=== PATIENT | male | born 1965 | race Caucasian/White ===

== ENCOUNTER 2019-07-10 14:15 | Inpatient (IN) | payer OTHER ==
[2019-07-10 17:55] VITALS: BMI 24.8
--- NOTE | 2019-07-10 19:15 | HP ---
"COWS - Scale Resting Pulse: 1= [place] 81-100 Sweatin=Flushed/Facial Moisture Restless Observation: 1= Difficult to Sit Still Pupil Size: 2= Moderately Dilated (Pupils = 3 mm) Bone or Joint Aches: 1= Mild Discomfort Runny Nose/ Eye Tearin= Nasal Congestion GI Upset > 30mins: 0= None Tremor Observation: 2= Slight Tremor Visible Yawning Observation: 0= None Anxiety or Irritability: 1=Feels Anxious/Irritable Goose Flesh Skin: 0=Smooth Skin COWS Score: 11 CIWA Score - Admission Criteria OAS Guidelines: Admission for Medically Managed Detox: Requires at least one of the followin. CIWA greater than 12 2. Seizures within the past 24 hours 3. Delirium tremens within the past 24 hours 4. Hallucinations within the past 24 hours 5. Acute intervention needed for co occurring medical disorder 6. Acute intervention needed for co occurring psychiatric disorder 7. Severe withdrawal that cannot be handled at a lower level of care (continued vomiting, continued diarrhea, abnormal vital signs) requiring intravenous medication and/or fluids 8. Admission ROS [facility] - [facility] Chief Complaint: Having withdrawal from heroin. Allergies/Adverse Reactions: Allergies Allergy/AdvReac Type Severity Reaction Status Date / Time No Known Allergies Allergy Verified 07/10/19 17:43 History of Present Illness: 53 yo presents w/ opioid withdrawal seeking detox. Heroin use began at age 39. Current use approx 5 bags/day x 3 years. Nasal. Last used about 8 am. Denies hx OD. Has a Narcan Kit at home. Methadone - denies methadone use. Denies oxycodone use. Marijuana use began at age 11. States smokes 1/2 joint/day. Alcohol use once/ month - approx 3-4 drinks. Denies a problem w/ alcohol. Denies nicotine use. Domiciled. Unemployed. Longest length of sobriety 6 months (3 1/2 yrs ago). Denies seizures, blackouts. PMHx: AFib (on Metoprolol and ASA 81); Acid Reflux (On omeprazole); Chronic LBP ; MHHx: Denies depression. Denies thoughts of harming self or others. Patient Name: Godwin Garza Date: 1965 Address: [address] [place] [address] Sex: Male Rx Written Rx Dispensed Drug Quantity Days Supply Prescriber Name 04/17/2019 04/17/2019 acetaminophen-cod #3 tablet 14 7 Vish Abbott DO Patient Name: Godwin Garza Date: 1965 Address: [address] [place] [address] Sex: Male Rx Written Rx Dispensed Drug Quantity Days Supply Prescriber Name 12/16/2018 12/16/2018 tramadol hcl 50 mg tablet 30 7 Mesh, Yamileth Search Terms: Godwin Garza, 1965 Search Date: 07/10/2019 07:14:31 PM States Searched: [place], [place], [place], [place], [place], [place] The Drug Utilization Report below displays the controlled substance prescriptions, if any, that were dispensed in the indicated state(s). The information displayed on this report is compiled from requests submitted to other states' PMPs, and accurately reflects the information as returned by them. Blank avila indicate data not provided by other state. This report was requested by: Carla Harper | Reference #: [id number] Exam Limitations: No Limitations - Ebola screening Have you traveled outside of the country in the last 21 days: No Have you had contact with anyone from an Ebola affected area: No Have you been sick,other than usual withdrawal symptoms: No (Denies recent exposure to measles) Do you have a fever: No - Review of Systems Constitutional: Diaphoresis, Changes in sleep (Difficulty falling asleep when not using - uses Trazodone) EENT: reports: Blurred Vision, Hearing Loss (Decreased hearing), Other (Hx tinitis) Respiratory: reports: No Symptoms reported Cardiac: reports: No Symptoms Reported GI: reports: Indigestion (Acid Reflux) : reports: No Symptoms Reported Musculoskeletal: reports: Back Pain (Chronic LBP. Pain is combination sharp and achy. No pain at this time.) Integumentary: reports: No Symptoms Reported Neuro: reports: Tremors Endocrine: reports: No Symptoms Reported Hematology: reports: No Symptoms Reported Psychiatric: reports: Judgement Intact, Orientated x3, Agitated, Anxious Patient History - PPD History Previous Implant?: Yes Documented Results: Negative w/proof Implanted On Prior [facility] Admission?: No PPD to be Administered?: No - Smoking Cessation Smoking history: Never smoked Have you smoked in the past 12 months: No Hx Chewing Tobacco Use: No Initiated information on smoking cessation: No - Substance & Tx. History Hx Alcohol Use: Yes Hx Substance Use: Yes Substance Use Type: Heroin, Marijuana Hx Substance Use Treatment: Yes (detox, rehab) - Substances abused Heroin Substance route: Inhalation Frequency: Daily Amount used: 5 bags Age of first use: 39 Date of last use: 07/10/19 Marijuana/Hashish Substance route: Smoking Frequency: Daily Amount used: half a joint at night Age of first use: 11 Date of last use: 07/09/19 Admission Physical Exam [facility] - Vital Signs Vital Signs: Vital Signs - 24 hr 07/10/19 17:42 Temperature 98.3 F Pulse Rate 77 Respiratory 16 Rate Blood Pressure 121/81 - Physical General Appearance: Yes: Nourished, Mild Distress, Tremorous, Sweating ( Increased facial moisture) HEENTM: Yes: EOMI (Jerking movement of eyes upon lateral gaze), Hearing grossly Normal, Normocephalic, Normal Voice, BENNY (Pupils = 3 mm), Pharynx Normal Respiratory: Yes: Lungs Clear, Normal Breath Sounds, No Respiratory Distress Neck: Yes: No masses,lesions,Nodules, Supple Breast: Yes: Breast Exam Deferred Cardiology: Yes: S1, S2, Irregular (Irregular rhythm and 86.) Abdominal: Yes: Non Tender, Flat, Soft, Increased Bowel Sounds Genitourinary: Yes: Within Normal Limits Back: Yes: Normal Inspection Musculoskeletal: Yes: full range of Motion, Gait Steady 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: 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 II-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 NML intact (Jerking movement of eyes upon lateral gaze), Fully Oriented, Alert, Motor Strength 5/5, Normal Mood/Affect Integumentary: Yes: Normal Color, Warm, Rash (reddish rash forehead/scalp) Lymphatic: Yes: Within Normal Limits - Diagnostic (1) Opioid dependence with withdrawal Current Visit: Yes Status: Acute (2) Cannabis dependence, uncomplicated Current Visit: Yes Status: Chronic (3) Afib Current Visit: Yes Status: Chronic Qualifiers: Atrial fibrillation type: unspecified Qualified Code(s): I48.91 - Unspecified atrial fibrillation (4) Dermatitis Current Visit: Yes Status: Chronic (5) Acid reflux Current Visit: Yes Status: Chronic Qualifiers: Esophagitis presence: without esophagitis Qualified Code(s): K21.9 - Gastro -esophageal reflux disease without esophagitis (6) Nystagmus Current Visit: Yes Status: Acute (7) Insomnia Current Visit: Yes Status: Chronic Qualifiers: Insomnia type: unspecified Qualified Code(s): G47.00 - Insomnia, unspecified (8) Chronic low back pain Current Visit: Yes Status: Chronic Qualifiers: Back pain laterality: midline Sciatica presence: without sciatica Qualified Code(s): M54.5 - Low back pain; G89.29 - Other chronic pain Cleared for Admission [facility] - Detox or Rehab [facility] Level of Care: Medically Managed Detox Regimen/Protocol: Methadone Claeared for Rehab Admission: No Breathalyzer - Breathalyzer Breathalyzer: 0 Urine Drug Screen - Test Device Lot number: [id number] Expiration date: 03/31/21 - Control Is test valid?: Yes - Results Drug screen NEGATIVE: No Urine drug screen results: THC-Marijuana, MOP-Opiates, OXY-Oxycodone, MTD- Methadone Inpatient Rehab Admission - Rehab Decision to Admit Inpatient rehab admission?: No"
[2019-07-10] MEDS ORDERED: MAGNESIUM HYDROX 2400MG/30ML ORAL SUSPENSION 30 ML CUP PO PRN (19:49)
[2019-07-10] MEDS ORDERED: MELATONIN 5 MG TABLETS PO PRN (19:49)
[2019-07-10] MEDS ORDERED: ACETAMINOPHEN 325 MG TABLET (FP) PO PRN ×2 (19:49)
[2019-07-10] MEDS ORDERED: MENTHOL/PHENOL 1 EACH UD MM PRN (19:49)
[2019-07-10] MEDS ORDERED: BISMUTH SUBSALICYLATE 524 MG/30 ML UD PO PRN (19:49)
[2019-07-10] MEDS ORDERED: METHADONE HCL 10 MG TABLET (FOR DETOX USE ONLY) PO ONE (19:49)
[2019-07-10] MEDS ORDERED: MAGNESIUM CITRATE 300 ML BOTTLE PO PRN (19:49)
[2019-07-10] MEDS ORDERED: MAG HYDROX/AL HYDROX/SIMETH 30 ML UNIT-DOSE CUP PO PRN (19:49)
[2019-07-10] MEDS ORDERED: NAPROXEN 500 MG TABLET (FP) PO PRN (19:55)
[2019-07-10] MEDS: THIAMINE HCL 100 MG TABLET (FP) PO SCH (22:45)
[2019-07-10] MEDS: GABAPENTIN 300 MG CAPSULE (FP) PO SCH (22:45)
[2019-07-10] MEDS: METOPROLOL TARTRATE 25 MG TABLET (FP) PO SCH (22:46)
[2019-07-10] MEDS: traZODone HCL 100 MG TABLET (FP) PO SCH (22:46)
[2019-07-10] MEDS: METHOCARBAMOL 750 MG TABLET PO SCH (22:46)
[2019-07-10] MEDS: TRIAMCINOLONE ACET 0.1% OINT 15 GM TUBE TP SCH (23:23)
[2019-07-10 23:50] LABS: URINE APPEARANCE CLEAR; URINE BILIRUBIN NEGATIVE (NEGATIVE); URINE COLOR YELLOW; URINE GLUCOSE (UA) NEGATIVE (NEGATIVE); URINE KETONE NEGATIVE (NEGATIVE); URINE LEUK ESTERASE NEGATIVE (NEGATIVE); URINE NITRITE NEGATIVE (NEGATIVE); URINE PROTEIN NEGATIVE (NEGATIVE)
[2019-07-11] MEDS ORDERED: METHADONE HCL 5 MG TABLET (FOR DETOX USE ONLY) ONE (09:40)
[2019-07-11] MEDS ORDERED: METHADONE HCL 10 MG TABLET (FOR DETOX USE ONLY) ONE (09:40)
[2019-07-11 09:59] LABS: ALBUMIN 3.6 g/dl (3.4-5.0); BILIRUBIN,TOTAL 0.4 mg/dL (0.2-1); BLOOD UREA NITROGEN 13.3 mg/dL (7-18); CALCIUM 8.3 mg/dL (8.5-10.1); CREATININE 0.8 mg/dL (0.55-1.3); POTASSIUM 4.1 mmol/L (3.5-5.1); TOT PROT 5.6 g/dl (6.4-8.2)
[2019-07-11] MEDS ORDERED: METHADONE (DETOX) 20 MG, METHADONE (DETOX) 5 MG PO ONE (10:00)
[2019-07-11 10:05] LABS: HEMATOCRIT 35.9 % (35.4-49); HEMOGLOBIN 12.3 GM/dL (11.7-16.9); MCH 31.3 pg (25.7-33.7); MCHC 34.2 g/dl (32.0-35.9); MEAN CELL VOLUME 91.5 fl (80-96); MEAN PLT VOLUME 6.9 fl (7.5-11.1); PLATELET COUNT 246 K/MM3 (134-434); RBC 3.93 M/mm3 (4.00-5.60); RDW 13.2 % (11.9-15.9); WHITE BLOOD COUNT 4.9 K/mm3 (4.0-10.0)
[2019-07-11] MEDS: METHOCARBAMOL 750 MG TABLET PO SCH ×2 (10:15→23:46)
[2019-07-11] MEDS: TRIAMCINOLONE ACET 0.1% OINT 15 GM TUBE TP SCH ×2 (10:15→22:59)
[2019-07-11] MEDS: ASPIRIN 81 MG CHEWABLE TABLETS PO SCH (10:15)
[2019-07-11] MEDS: METOPROLOL TARTRATE 25 MG TABLET (FP) PO SCH ×2 (10:42→22:58)
[2019-07-11] MEDS: PANTOPRAZOLE 20 MG TABLET (FP) PO SCH (10:42)
[2019-07-11] MEDS: PRENATAL VITAMINS W/ FOLIC ACID TABLET (FP) PO SCH (10:42)
[2019-07-11] MEDS: GABAPENTIN 300 MG CAPSULE (FP) PO SCH ×4 (10:43→22:58)
--- NOTE | 2019-07-11 12:00 | PN ---
BHS COWS - Scale Resting Pulse: 0= [place] 80 or Below Sweatin= Chills/Flushing Restless Observation: 1= Difficult to Sit Still Pupil Size: 0= Normal to Room Light Bone or Joint Aches: 1= Mild Discomfort Runny Nose/ Eye Tearin= Runny Nose/Eyes GI Upset > 30mins: 0= None Tremor Observation of Outstretched Hands: 2= Slight Tremor Visible Yawning Observation: 2= >3x During Session Anxiety or Irritability: 2=Irritable/Anxious Goose Flesh Skin: 0=Smooth Skin COWS Score: 11 BHS Progress Note (SOAP) Subjective: sweats anxiety Objective: 07/11/19 12:00 Vital Signs Temperature 97.9 F 07/11/19 09:23 Pulse Rate 67 07/11/19 09:23 Respiratory Rate 18 07/11/19 09:23 Blood Pressure 122/74 07/11/19 09:23 O2 Sat by Pulse Oximetry (%) Laboratory Tests 07/10/19 07/11/19 07/11/19 22:30 08:00 08:00 WBC 4.9 RBC 3.93 L Hgb 12.3 Hct 35.9 MCV 91.5 MCH 31.3 MCHC 34.2 RDW 13.2 Plt Count 246 MPV 6.9 L Sodium 142 Potassium 4.1 Chloride 106 Carbon Dioxide 32 Anion Gap 4 L BUN 13.3 Creatinine 0.8 Est GFR (CKD-EPI)AfAm 117.38 Est GFR (CKD-EPI)NonAf 101.27 Random Glucose 98 Calcium 8.3 L Total Bilirubin 0.4 AST 9 L ALT 17 Alkaline Phosphatase 50 Total Protein 5.6 L Albumin 3.6 Urine Color Yellow Urine Appearance Clear Urine pH 6.0 Ur Specific [place] 1.022 Urine Protein Negative Urine Glucose (UA) Negative Urine Ketones Negative Urine Blood Negative Urine Nitrite Negative Urine Bilirubin Negative Urine Urobilinogen 1.0 Ur Leukocyte Esterase Negative labs noted aaox3 ambulating no acute distress Assessment: 07/11/19 12:00 withdrawal sx Plan: continue detox increase fluids
--- NOTE | 2019-07-11 15:21 | EKG ---
Test Reason : Blood Pressure : / mmHG Vent. Rate : 066 BPM Atrial Rate : 066 BPM P-R Int : 206 ms QRS Dur : 094 ms QT Int : 398 ms P-R-T Axes : 048 -28 025 degrees QTc Int : 417 ms NORMAL SINUS RHYTHM NORMAL ECG NO PREVIOUS ECGS AVAILABLE Confirmed by MD Derick, Steve ([id number]) on 07/11/2019 3:21:16 PM Referred By: DAVID SCHULTE Confirmed By:Steve Sepulveda MD
[2019-07-11] MEDS: traZODone HCL 100 MG TABLET (FP) PO SCH (22:58)
[2019-07-11] MEDS: THIAMINE HCL 100 MG TABLET (FP) PO SCH (22:58)
[2019-07-11] MEDS: METHOCARBAMOL 500 MG TABLET PO SCH (23:32)
[2019-07-12] MEDS ORDERED: METHADONE HCL 10 MG TABLET (FOR DETOX USE ONLY) PO ONE (10:00)
[2019-07-12] MEDS: METHOCARBAMOL 500 MG TABLET PO SCH ×2 (11:05→22:38)
[2019-07-12] MEDS: PANTOPRAZOLE 20 MG TABLET (FP) PO SCH (11:05)
[2019-07-12] MEDS: ASPIRIN 81 MG CHEWABLE TABLETS PO SCH (11:05)
[2019-07-12] MEDS: TRIAMCINOLONE ACET 0.1% OINT 15 GM TUBE TP SCH ×2 (11:05→22:39)
[2019-07-12] MEDS: PRENATAL VITAMINS W/ FOLIC ACID TABLET (FP) PO SCH (11:05)
[2019-07-12] MEDS: METOPROLOL TARTRATE 25 MG TABLET (FP) PO SCH ×2 (11:05→22:38)
[2019-07-12] MEDS: GABAPENTIN 300 MG CAPSULE (FP) PO SCH ×4 (11:56→22:38)
--- NOTE | 2019-07-12 13:54 | PN ---
BHS COWS - Scale Resting Pulse: 0= [place] 80 or Below Sweatin= Chills/Flushing Restless Observation: 1= Difficult to Sit Still Pupil Size: 0= Normal to Room Light Bone or Joint Aches: 1= Mild Discomfort Runny Nose/ Eye Tearin= Runny Nose/Eyes GI Upset > 30mins: 1= Stomach Cramp Tremor Observation of Outstretched Hands: 2= Slight Tremor Visible Yawning Observation: 0= None Anxiety or Irritability: 2=Irritable/Anxious Goose Flesh Skin: 0=Smooth Skin COWS Score: 10 BHS Progress Note (SOAP) Subjective: Feels ok, medication helping (refused to elaborate) Objective: 07/12/19 13:53 Last Vital Signs Temp Pulse Resp BP Pulse Ox 98.1 F 65 16 121/74 07/12/19 13:29 07/12/19 13:29 07/12/19 13:29 07/12/19 13:29 Laboratory Tests 07/10/19 07/11/19 07/11/19 22:30 08:00 08:00 WBC 4.9 RBC 3.93 L Hgb 12.3 Hct 35.9 MCV 91.5 MCH 31.3 MCHC 34.2 RDW 13.2 Plt Count 246 MPV 6.9 L Sodium 142 Potassium 4.1 Chloride 106 Carbon Dioxide 32 Anion Gap 4 L BUN 13.3 Creatinine 0.8 Est GFR (CKD-EPI)AfAm 117.38 Est GFR (CKD-EPI)NonAf 101.27 Random Glucose 98 Calcium 8.3 L Total Bilirubin 0.4 AST 9 L ALT 17 Alkaline Phosphatase 50 Total Protein 5.6 L Albumin 3.6 Urine Color Yellow Urine Appearance Clear Urine pH 6.0 Ur Specific [place] 1.022 Urine Protein Negative Urine Glucose (UA) Negative Urine Ketones Negative Urine Blood Negative Urine Nitrite Negative Urine Bilirubin Negative Urine Urobilinogen 1.0 Ur Leukocyte Esterase Negative RPR Titer 07/11/19 08:00 WBC RBC Hgb Hct MCV MCH MCHC RDW Plt Count MPV Sodium Potassium Chloride Carbon Dioxide Anion Gap BUN Creatinine Est GFR (CKD-EPI)AfAm Est GFR (CKD-EPI)NonAf Random Glucose Calcium Total Bilirubin AST ALT Alkaline Phosphatase Total Protein Albumin Urine Color Urine Appearance Urine pH Ur Specific [place] Urine Protein Urine Glucose (UA) Urine Ketones Urine Blood Urine Nitrite Urine Bilirubin Urine Urobilinogen Ur Leukocyte Esterase RPR Titer Nonreactive Labs reviewed Assessment: 07/12/19 13:53 Withdrawal sxs Plan: Continue detox Encouraged PO water intake
[2019-07-12] MEDS: traZODone HCL 100 MG TABLET (FP) PO SCH (22:38)
[2019-07-12] MEDS: THIAMINE HCL 100 MG TABLET (FP) PO SCH (23:00)
[2019-07-13] MEDS ORDERED: METHADONE HCL 10 MG TABLET (FOR DETOX USE ONLY) ONE (09:55)
[2019-07-13] MEDS ORDERED: METHADONE (DETOX) 10 MG, METHADONE (DETOX) 5 MG PO ONE (10:00)
[2019-07-13] MEDS: GABAPENTIN 300 MG CAPSULE (FP) PO SCH ×4 (11:05→22:07)
[2019-07-13] MEDS: TRIAMCINOLONE ACET 0.1% OINT 15 GM TUBE TP SCH ×2 (11:10→22:08)
[2019-07-13] MEDS: ASPIRIN 81 MG CHEWABLE TABLETS PO SCH (11:10)
[2019-07-13] MEDS: PANTOPRAZOLE 20 MG TABLET (FP) PO SCH (11:11)
[2019-07-13] MEDS: METOPROLOL TARTRATE 25 MG TABLET (FP) PO SCH ×2 (11:11→22:07)
[2019-07-13] MEDS: METHOCARBAMOL 500 MG TABLET PO SCH ×2 (11:11→22:08)
[2019-07-13] MEDS: PRENATAL VITAMINS W/ FOLIC ACID TABLET (FP) PO SCH (11:11)
--- NOTE | 2019-07-13 16:18 | PN ---
BHS COWS - Scale Resting Pulse: 0= [place] 80 or Below Sweatin= Chills/Flushing Restless Observation: 0= Sits Still Pupil Size: 0= Normal to Room Light Bone or Joint Aches: 1= Mild Discomfort Runny Nose/ Eye Tearin= None GI Upset > 30mins: 0= None Tremor Observation of Outstretched Hands: 0= None Yawning Observation: 1= 1-2x During Session Anxiety or Irritability: 2=Irritable/Anxious Goose Flesh Skin: 3=Piloerection COWS Score: 8 BHS Progress Note (SOAP) Subjective: Anxious, Sweating. Objective: PATIENT A & O X 3. IN NO ACUTE DISTRESS. 07/13/19 16:15 Vital Signs Temperature 97.9 F 07/13/19 13:58 Pulse Rate 66 07/13/19 13:58 Respiratory Rate 16 07/13/19 13:58 Blood Pressure 117/73 07/13/19 13:58 O2 Sat by Pulse Oximetry (%) Laboratory Tests 07/10/19 07/11/19 07/11/19 22:30 08:00 08:00 WBC 4.9 RBC 3.93 L Hgb 12.3 Hct 35.9 MCV 91.5 MCH 31.3 MCHC 34.2 RDW 13.2 Plt Count 246 MPV 6.9 L Sodium 142 Potassium 4.1 Chloride 106 Carbon Dioxide 32 Anion Gap 4 L BUN 13.3 Creatinine 0.8 Est GFR (CKD-EPI)AfAm 117.38 Est GFR (CKD-EPI)NonAf 101.27 Random Glucose 98 Calcium 8.3 L Total Bilirubin 0.4 AST 9 L ALT 17 Alkaline Phosphatase 50 Total Protein 5.6 L Albumin 3.6 Urine Color Yellow Urine Appearance Clear Urine pH 6.0 Ur Specific [place] 1.022 Urine Protein Negative Urine Glucose (UA) Negative Urine Ketones Negative Urine Blood Negative Urine Nitrite Negative Urine Bilirubin Negative Urine Urobilinogen 1.0 Ur Leukocyte Esterase Negative RPR Titer 07/11/19 08:00 WBC RBC Hgb Hct MCV MCH MCHC RDW Plt Count MPV Sodium Potassium Chloride Carbon Dioxide Anion Gap BUN Creatinine Est GFR (CKD-EPI)AfAm Est GFR (CKD-EPI)NonAf Random Glucose Calcium Total Bilirubin AST ALT Alkaline Phosphatase Total Protein Albumin Urine Color Urine Appearance Urine pH Ur Specific [place] Urine Protein Urine Glucose (UA) Urine Ketones Urine Blood Urine Nitrite Urine Bilirubin Urine Urobilinogen Ur Leukocyte Esterase RPR Titer Nonreactive LABS NOTED. RESULTS OF DETOX ADMISSION QFT /TB TEST PENDING. 07/13/19 16:17 Assessment: 07/13/19 16:15 WITHDRAWAL SYMPTOMS. Plan: CONTINUE DETOX.
[2019-07-13] MEDS: traZODone HCL 100 MG TABLET (FP) PO SCH (22:07)
[2019-07-13] MEDS: THIAMINE HCL 100 MG TABLET (FP) PO SCH (22:07)
[2019-07-14] MEDS ORDERED: METHADONE HCL 10 MG TABLET (FOR DETOX USE ONLY) PO ONE (10:00)
[2019-07-14] MEDS: ASPIRIN 81 MG CHEWABLE TABLETS PO SCH (10:26)
[2019-07-14] MEDS: METOPROLOL TARTRATE 25 MG TABLET (FP) PO SCH ×2 (10:26→22:10)
[2019-07-14] MEDS: TRIAMCINOLONE ACET 0.1% OINT 15 GM TUBE TP SCH ×2 (10:26→22:10)
[2019-07-14] MEDS: GABAPENTIN 300 MG CAPSULE (FP) PO SCH ×4 (10:26→22:09)
[2019-07-14] MEDS: PANTOPRAZOLE 20 MG TABLET (FP) PO SCH (10:26)
[2019-07-14] MEDS: METHOCARBAMOL 500 MG TABLET PO SCH ×2 (10:26→22:10)
[2019-07-14] MEDS: PRENATAL VITAMINS W/ FOLIC ACID TABLET (FP) PO SCH (10:27)
--- NOTE | 2019-07-14 10:50 | PN ---
BHS COWS - Scale Resting Pulse: 0= [place] 80 or Below Sweatin= Chills/Flushing Restless Observation: 1= Difficult to Sit Still Pupil Size: 1= Pupils >than Normal Bone or Joint Aches: 1= Mild Discomfort Runny Nose/ Eye Tearin= Nasal Congestion GI Upset > 30mins: 1= Stomach Cramp Tremor Observation of Outstretched Hands: 1= Tremor [place], Not Seen Yawning Observation: 1= 1-2x During Session Anxiety or Irritability: 2=Irritable/Anxious Goose Flesh Skin: 0=Smooth Skin COWS Score: 10 S Progress Note (SOAP) Subjective: alert,irritable,anxious,pain in the body and back,interrupted sleep Objective: 07/14/19 10:48 Vital Signs Temperature 97.9 F 07/14/19 09:28 Pulse Rate 77 07/14/19 09:28 Respiratory Rate 18 07/14/19 09:28 Blood Pressure 104/66 07/14/19 09:28 O2 Sat by Pulse Oximetry (%) Assessment: 07/14/19 10:49 withdrawal symptom Plan: continue detox methadone regimen,discharge in am
[2019-07-14] MEDS: traZODone HCL 100 MG TABLET (FP) PO SCH (22:09)
[2019-07-14] MEDS: THIAMINE HCL 100 MG TABLET (FP) PO SCH (22:09)
[2019-07-15] MEDS ORDERED: METHADONE HCL 5 MG TABLET (FOR DETOX USE ONLY) PO ONE (06:00)
[2019-07-15 09:31] VITALS: BP 120/73; PULSE 77; TEMP 97.9
[2019-07-15] MEDS: TRIAMCINOLONE ACET 0.1% OINT 15 GM TUBE TP SCH (10:00)
[2019-07-15] MEDS: PANTOPRAZOLE 20 MG TABLET (FP) PO SCH (10:30)
[2019-07-15] MEDS: METOPROLOL TARTRATE 25 MG TABLET (FP) PO SCH (10:30)
[2019-07-15] MEDS: GABAPENTIN 300 MG CAPSULE (FP) PO SCH (10:30)
[2019-07-15] MEDS: PRENATAL VITAMINS W/ FOLIC ACID TABLET (FP) PO SCH (10:30)
[2019-07-15] MEDS: ASPIRIN 81 MG CHEWABLE TABLETS PO SCH (10:30)
[2019-07-15] MEDS: METHOCARBAMOL 500 MG TABLET PO SCH (10:30)
--- NOTE | 2019-07-15 15:59 | DS ---
[facility] Detox Discharge Summary Admission Date: 07/10/19 Discharge Date: 07/15/19 - History Present History: Cannabis Dependence, Opioid Dependence Additional Comments: PATIENT GOING TO [facility] ([place], [place]) FOR AFTERCARE. PATIENT DECLINED OFFER OF MEDICATION PRESCRIPTION FOR HOME MEDICATION AT TIME OF DISCHARGE FROM DETOX, NOTING THAT HE CURRENTLY HAS ADEQUATE SUPPLIES OF ALL PRESCRIBED HOME MEDICATIONS AT HOME. PATIENT WAS DISCHARGED FROM DETOX UNIT IN STABLE MEDICAL CONDITION. Pertinent Past History: Nystagmus, History Of Atrial Fibrillation, History Of Acid Reflux, History Of Chronic Low Back Pain, Insomnia, History Of Dermatitis. - Physical Exam Results Vital Signs: Vital Signs Temperature 97.9 F 07/15/19 09:31 Pulse Rate 77 07/15/19 09:31 Respiratory Rate 18 07/15/19 09:31 Blood Pressure 120/73 07/15/19 09:31 O2 Sat by Pulse Oximetry (%) Pertinent Admission Physical Exam Findings: WITHDRAWAL SYMPTOMS. Laboratory Tests 07/10/19 07/11/19 07/11/19 22:30 08:00 08:00 WBC 4.9 RBC 3.93 L Hgb 12.3 Hct 35.9 MCV 91.5 MCH 31.3 MCHC 34.2 RDW 13.2 Plt Count 246 MPV 6.9 L Sodium 142 Potassium 4.1 Chloride 106 Carbon Dioxide 32 Anion Gap 4 L BUN 13.3 Creatinine 0.8 Est GFR (CKD-EPI)AfAm 117.38 Est GFR (CKD-EPI)NonAf 101.27 Random Glucose 98 Calcium 8.3 L Total Bilirubin 0.4 AST 9 L ALT 17 Alkaline Phosphatase 50 Total Protein 5.6 L Albumin 3.6 Urine Color Yellow Urine Appearance Clear Urine pH 6.0 Ur Specific [place] 1.022 Urine Protein Negative Urine Glucose (UA) Negative Urine Ketones Negative Urine Blood Negative Urine Nitrite Negative Urine Bilirubin Negative Urine Urobilinogen 1.0 Ur Leukocyte Esterase Negative RPR Titer 07/11/19 08:00 WBC RBC Hgb Hct MCV MCH MCHC RDW Plt Count MPV Sodium Potassium Chloride Carbon Dioxide Anion Gap BUN Creatinine Est GFR (CKD-EPI)AfAm Est GFR (CKD-EPI)NonAf Random Glucose Calcium Total Bilirubin AST ALT Alkaline Phosphatase Total Protein Albumin Urine Color Urine Appearance Urine pH Ur Specific [place] Urine Protein Urine Glucose (UA) Urine Ketones Urine Blood Urine Nitrite Urine Bilirubin Urine Urobilinogen Ur Leukocyte Esterase RPR Titer Nonreactive LABS NOTED. - Treatment Hospital Course: Detox Protocol Followed, Detoxed Safely, Responded well, Discharged Condition Good, Rehab Referral Accepted Patient has Accepted a Rehab Referral to: [facility] ([place], [place]). - Medication Discharge Medications: Ambulatory Orders Aspirin [ASA -] 81 mg PO DAILY 07/10/19 Gabapentin [Neurontin] 600 mg PO QID 07/10/19 Metoprolol Tartrate [Lopressor -] 25 mg PO BID 07/10/19 Omeprazole 20 mg PO DAILY 07/10/19 Trazodone HCl 100 mg PO HS 07/10/19 - Diagnosis (1) Nystagmus Status: Acute (2) Opioid dependence with withdrawal Status: Acute (3) Acid reflux Status: Chronic Qualifiers: Esophagitis presence: without esophagitis Qualified Code(s): K21.9 - Gastro -esophageal reflux disease without esophagitis (4) Afib Status: Chronic Qualifiers: Atrial fibrillation type: unspecified Qualified Code(s): I48.91 - Unspecified atrial fibrillation (5) Cannabis dependence, uncomplicated Status: Chronic (6) Chronic low back pain Status: Chronic Qualifiers: Back pain laterality: midline Sciatica presence: without sciatica Qualified Code(s): M54.5 - Low back pain; G89.29 - Other chronic pain (7) Dermatitis Status: Chronic (8) Insomnia Status: Chronic Qualifiers: Insomnia type: unspecified Qualified Code(s): G47.00 - Insomnia, unspecified - AMA Did Patient Leave Against Medical Advice: No
== END 2019-07-15 10:45 | disposition home or self-care (01) | DRG 773 ==
LOC: YASAS 14:15 → Y6N 19:49
PROVIDERS: ADMIT Surgery; ATTEND Surgery
PROC: HZ2ZZZZ Detoxification Services for Substance Abuse Treatment (ICD-10-PCS; principal; 2019-07-10)
DX: F11.23 Opioid dependence with withdrawal (principal); F12.20 Cannabis dependence, uncomplicated; I48.91 Unspecified atrial fibrillation; H55.00 Unspecified nystagmus; K21.9 Gastro-esophageal reflux disease without esophagitis; M54.5 Low back pain; G89.29 Other chronic pain; G47.00 Insomnia, unspecified; L30.9 Dermatitis, unspecified; Z79.82 Long term (current) use of aspirin
CPT/HCPCS: 36415; 80053; 81003; 85027; 86480; 86593; 93005; 93010